=== PATIENT | male | born 1970 | race Two or more races ===

== ENCOUNTER 2017-07-21 01:45 | Emergency (ER) | payer SELFPAY ==
[~2017-07-21] VITALS: Ht 170.2 cm; Wt 81.6 kg
[2017-07-21 01:54] VITALS: BP 138/89
[2017-07-21] MEDS ORDERED: IBUPROFEN600 MG ORAL (02:37)
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
[2017-07-21 03:10] VITALS: BP 135/88
--- NOTE | 2017-07-21 08:51 | Diagnostic Imaging Report ---
Indication: Right leg pain Technique: Right tibia/fibula 2 views Comparison: None Findings: There is a subtle fracture involving the fibular neck. There is osteopenia. Please refer to separate dictation of the ankle for findings regarding the ankle. Impression: Subtle nondisplaced fracture involving the fibular neck. Clinical correlation recommended. Findings discussed with Dr. Roberts on 07/21/2017 by phone.
--- NOTE | 2017-07-21 08:53 | Diagnostic Imaging Report ---
Indication: Right ankle pain Technique: Right ankle 3 views Comparison: None Findings: There are old fracture deformities of the distal fibula and medial malleolus with internal fixation. The hardware appears intact. 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 There is also prominent spurring of the talonavicular and calcaneocuboid articulations. There is also spurring of the mid foot. Plantar posterior calcaneal enthesophytes are seen. Impression: Old fracture deformities of the distal fibula and medial malleolus with internal fixation. Severe tibiotalar arthrosis. Additional degenerative changes of the mid and hindfoot as above.
== END 2017-07-21 03:17 | disposition home or self-care (01) ==
LOC: EDBD 01:45 → EMR 01:50
DX: M25.571 Pain in right ankle and joints of right foot (principal); M19.071 Primary osteoarthritis, right ankle and foot; M85.871 Other specified disorders of bone density and structure, right ankle and foot; Z98.890 Other specified postprocedural states
CPT/HCPCS: 29515; 99284